=== PATIENT | male | born 1980 | race American Indian/Alaskan Native ===

== ENCOUNTER 2020-09-22 09:43 | Inpatient (IN) | payer BC ==
--- NOTE | 2020-09-22 11:19 | Emergency Department Report ---
ED General Adult HPI - General Chief complaint: Dyspnea/Respdistress Stated complaint: SOB PUI?: Yes Time Seen by Provider: 09/22/20 10:31 Source: patient Mode of arrival: Ambulatory Limitations: No Limitations - History of Present Illness Initial comments: This is a 40-year-old male with no prior medical history presents ED complaining of shortness of breath that worsened today. Patient states that he was tested positive for Covid Friday morning. Patient states that he is not having upper respiratory symptoms prior to that. Patient states that this morning he woke up and felt short of breath. Patient is also complaining of noticing blood with urination. Patient states he has had a couple of episodes today. Patient denies any fever, chills, nausea vomiting, abdominal pain, flank pain, diarrhea dysuria or bowel movements regularly Associated Symptoms: loss of appetite, shortness of breath - Related Data Allergies Allergy/AdvReac Type Severity Reaction Status Date / Time No Known Allergies Allergy Unverified 09/22/20 12:43 ED Review of Systems ROS: Stated complaint: SOB Other details as noted in HPI Comment: All other systems reviewed and negative ED Physical Exam - General Limitations: No Limitations General appearance: alert, in no apparent distress - Head Head exam: Present: atraumatic, normocephalic - Eye Eye exam: Present: normal appearance - ENT ENT exam: Present: mucous membranes moist - Neck Neck exam: Present: normal inspection, full ROM - Respiratory Respiratory exam: Present: normal lung sounds bilaterally, rales, accessory muscle use, decreased breath sounds. Absent: respiratory distress, chest wall tenderness - Cardiovascular Cardiovascular Exam: Present: regular rate, normal rhythm. Absent: systolic murmur, diastolic murmur, rubs, gallop - GI/Abdominal GI/Abdominal exam: Present: soft, normal bowel sounds - Rectal Rectal exam: Present: deferred - Extremities Exam Extremities exam: Present: normal inspection - Back Exam Back exam: Present: normal inspection - Neurological Exam Neurological exam: Present: alert, oriented X3 - Psychiatric Psychiatric exam: Present: normal affect, normal mood - Skin Skin exam: Present: warm, dry, intact, normal color. Absent: rash ED Course Vital Signs 09/22/20 12:59 Temperature 99.1 F Pulse Rate 90 Respiratory 18 Rate O2 Sat by Pulse 94 Oximetry - Reevaluation(s) Reevaluation #1: Upon reevaluating patient patient remains hypoxic at 90% on room air without exertion. CTA pending. 09/22/20 13:13 ED Medical Decision Making - Lab Data Result diagrams: 09/22/20 10:53 09/22/20 10:53 Laboratory Last Values WBC 5.1 K/mm3 (4.5-11.0) 09/22/20 10:53 RBC 5.44 M/mm3 (3.65-5.03) H 09/22/20 10:53 Hgb 15.1 gm/dl (11.8-15.2) 09/22/20 10:53 Hct 43.7 % (35.5-45.6) 09/22/20 10:53 MCV 80 fl (84-94) L 09/22/20 10:53 MCH 28 pg (28-32) 09/22/20 10:53 MCHC 35 % (32-34) H 09/22/20 10:53 RDW 14.8 % (13.2-15.2) 09/22/20 10:53 Plt Count 189 K/mm3 (140-440) 09/22/20 10:53 Lymph % (Auto) 7.4 % (13.4-35.0) L 09/22/20 10:53 [place] % (Auto) 5.7 % (0.0-7.3) 09/22/20 10:53 Eos % (Auto) 7.2 % (0.0-4.3) H 09/22/20 10:53 Baso % (Auto) 0.6 % (0.0-1.8) 09/22/20 10:53 Lymph # (Auto) 0.4 K/mm3 (1.2-5.4) L 09/22/20 10:53 [place] # (Auto) 0.3 K/mm3 (0.0-0.8) 09/22/20 10:53 Eos # (Auto) 0.4 K/mm3 (0.0-0.4) 09/22/20 10:53 Baso # (Auto) 0.0 K/mm3 (0.0-0.1) 09/22/20 10:53 Seg Neutrophils % 79.1 % (40.0-70.0) H 09/22/20 10:53 Seg Neutrophils # 4.0 K/mm3 (1.8-7.7) 09/22/20 10:53 D-Dimer 538.03 ng/mlDDU (0-234) H 09/22/20 10:53 Sodium 135 mmol/L (137-145) L 09/22/20 10:53 Potassium 4.2 mmol/L (3.6-5.0) 09/22/20 10:53 Chloride 96.4 mmol/L (98-107) L 09/22/20 10:53 Carbon Dioxide 27 mmol/L (22-30) 09/22/20 10:53 Anion Gap 16 mmol/L 09/22/20 10:53 BUN 13 mg/dL (9-20) 09/22/20 10:53 Creatinine 1.0 mg/dL (0.8-1.3) 09/22/20 10:53 Estimated GFR > 60 ml/min 09/22/20 10:53 BUN/Creatinine Ratio 13 % 09/22/20 10:53 Glucose 123 mg/dL (75-100) H 09/22/20 10:53 Glucose 124 mg/dL (75-100) H 09/22/20 10:53 Calcium 8.4 mg/dL (8.4-10.2) 09/22/20 10:53 Ferritin 1405.0 ng/mL (30.0-300.0) H 09/22/20 10:53 Lactate Dehydrogenase 432 units/L (91-180) H 09/22/20 10:53 C-Reactive Protein 4.10 mg/dL (0.00-1.30) H 09/22/20 10:53 - Radiology Data Radiology results: report reviewed, image reviewed CTA CHEST WITH CONTRAST INDICATION : Shortness of breath, elevated d-dimer. TECHNIQUE: Axial imaging performed through the chest, with contrast bolus timing set to maximize opacification of the pulmonary arteries. Sagittal and coronal reformatted images. 3-plane MIP reformatted images were obtained. All CT scans at this location are performed using CT dose reduction for ALARA by means of automated exposure control. 100 mL of intravenous contrast administered. COMPARISON: None FINDINGS: Bolus: Contrast bolus timing is adequate. PTE: No filling defect is present to suggest PTE. Mediastinum: Heart and great vessels appear normal. No pathologic mediastinal adenopathy. Lungs: There are scattered airspace opacities in the peripheral and lower lung zones bilaterally concerning for atypical pneumonia or viral infection. No consolidation, pleural effusion or pneumothorax. Bones: No significant abnormality. Upper abdomen: Limited imaging of the upper abdomen shows nothing acute. IMPRESSION: No evidence for pulmonary embolus. Bilateral lung opacities are identified concerning for atypical pneumonia or viral infection. Signer Name: Gregorio Leiva Jr, MD Signed: 09/22/2020 1:42 PM Workstation Name: [id number] Transcribed By: TTR Dictated By: GREGORIO LEIVA JR, MD Electronically Authenticated By: GREGORIO LEIVA JR, MD Signed Date/Time: 09/22/20 9312 - Medical Decision Making This 40-year-old male presents with Covid pneumonia with a decreased oxygen saturation persisting and dropping without exertion. Patient has been symptomatic for about a week not resolving symptoms. Patient will need supplemental oxygen if oxygen saturation keeps decreasing Discussed case with attending Dr. River who agrees with admission. Hospitalist Dr. Mohinder Carrillo consulted to admit patient. CTA results negative for DVT positive for bilateral pneumonia Patient to be admitted to the floor. Critical care attestation.: If time is entered above; I have spent that time in minutes in the direct care of this critically ill patient, excluding procedure time. ED Disposition Clinical Impression: Pneumonia due to COVID-19 virus Disposition: OP ADMIT IP TO THIS HOSP Is pt being admited?: Yes Does the pt Need Aspirin: No Condition: Stable
[2020-09-22 11:31] LABS: Basophils % (Auto) 0.6 % (0.0-1.8); Eosinophils # (Auto) 0.4 K/mm3 (0.0-0.4); Eosinophils % (Auto) 7.2 % (0.0-4.3); Hematocrit 43.7 % (35.5-45.6); Hemoglobin 15.1 gm/dl (11.8-15.2); Lymphocytes # (Auto) 0.4 K/mm3 (1.2-5.4); Lymphocytes % (Auto) 7.4 % (13.4-35.0); Mean Corpuscular HGB Conc 35 % (32-34); Mean Corpuscular Volume 80 fl (84-94); Monocytes # (Auto) 0.3 K/mm3 (0.0-0.8); Monocytes % (Auto) 5.7 % (0.0-7.3); Platelet Count 189 K/mm3 (140-440); Red Blood Count 5.44 M/mm3 (3.65-5.03); Red Cell Distribution Width 14.8 % (13.2-15.2)
[2020-09-22 11:35] LABS: BUN/Creatinine Ratio 13; Blood Urea Nitrogen 13 mg/dL (9-20); Calcium 8.4 mg/dL (8.4-10.2); Hemolysis Index 4
[2020-09-22 11:38] LABS: C-Reactive Protein 4.1 mg/dL (0.00-1.30)
--- NOTE | 2020-09-22 11:49 | XRay Report ---
CHEST 1 VIEW 09/22/2020 10:42 AM INDICATION / CLINICAL INFORMATION: sob. Covid positive COMPARISON: None available. FINDINGS: SUPPORT DEVICES: None. HEART / MEDIASTINUM: No significant abnormality. LUNGS / PLEURA: Patchy bilateral pulmonary opacities most predominant at the lung bases. No pleural e ffusion. No pneumothorax. ADDITIONAL FINDINGS: No significant additional findings. IMPRESSION: 1. Patchy bilateral pulmonary opacities consistent with provided history of viral versus atypical inf ectious process. Signer Name: Marcus Dumont MD Signed: 09/22/2020 11:45 AM Workstation Name: [id number]
[2020-09-22] MEDS ORDERED: SODIUM CHLORIDE 0.9% 1000 ML 1,000 ML IV ONE (12:12)
[2020-09-22] MEDS ORDERED: dexAMETHasone 20 MG/5 ML VIAL IV ONE (13:00)
[2020-09-22] MEDS ORDERED: cefTRIAXone/NS 1 GM/50 ML 1 GM/50 ML BAG IV ONE (13:00)
[2020-09-22] MEDS ORDERED: ONDANSETRON 4 MG/2 ML INJ IV PRN (13:03)
[2020-09-22] MEDS ORDERED: ACETAMINOPHEN 325 MG TAB PO PRN (13:03)
[2020-09-22] MEDS ORDERED: ALBUTEROL 2.5 MG/3 ML NEBU IH PRN (13:03)
--- NOTE | 2020-09-22 13:07 | History and Physical Report ---
History of Present Illness Chief complaint: My breathing has gotten worse History of present illness: 40 YO Male with Obesity presents to ED for evaluation. Patient reports "my breathing has gotten worse". Patient states that he has experienced shortness of breath over the past 1 week with persistently worsening symptoms over the same timeframe. Patient was found to have a positive coronavirus test 2 days ago. Patient acknowledges dyspnea on exertion, dyspnea at rest, decreased exercise tolerance, malaise, fatigue, body aches. Patient transported to [facility] via private vehicle for further care and evaluation of the aforementioned symptoms. The patient was seen and evaluated in the emergency department. All lab and imaging studies reviewed. The patient was found to have an ambulatory pulse oximetry of 87% with exertion which is consistent with acute hypoxemic respiratory failure. Patient underwent chest x-ray which revealed bilateral pneumonia. Patient admitted to medical floor and initiated on coronavirus protocol as well as pneumonia protocol. Patient denies fever, chills, chest pain, palpitation, productive cough, skin rash, recent ill contacts. No prior admission for review. No medication listed at time of admission for reconciliation. Past History Past Medical History: other (See HPI) Past Surgical History: No surgical history Social history: single. denies: smoking, alcohol abuse, prescription drug abuse Family history: hypertension Medications and Allergies Allergies Allergy/AdvReac Type Severity Reaction Status Date / Time No Known Allergies Allergy Unverified 09/22/20 12:43 Active Meds: Active Medications Acetaminophen (Acetaminophen 325 Mg Tab) 650 mg PO Q4H PRN PRN Reason: Pain MILD(1-3)/Fever >100.5/MAYA Albuterol (Albuterol 2.5 Mg/3 Ml Nebu) 2.5 mg IH Q4HRT PRN PRN Reason: Shortness Of Breath Heparin Sodium (Porcine) (Heparin 5,000 Unit/1 Ml Vial) 5,000 unit SUB-Q Q12HR WILLIE Sodium Chloride (Nacl 0.9% 1000 Ml) 1,000 mls @ 999 mls/hr IV BOLUS ONE Stop: 09/22/20 13:12 Ceftriaxone Sodium (Rocephin/Ns 1 Gm/50 Ml) 1 gm in 50 mls @ 100 mls/hr IV ONCE ONE; Protocol Stop: 09/22/20 13:29 Ceftriaxone Sodium (Rocephin/Ns 2 Gm/100 Ml) 2 gm in 100 mls @ 200 mls/hr IV Q24H WILLIE; Protocol Azithromycin (Zithromax/Ns) 500 mg in 250 mls @ 250 mls/hr IV Q24H WILLIE; Protocol Methylprednisolone Sodium Succinate (Methylprednisolone Sod Succinate 40 Mg/1 Ml Inj) 40 mg IV Q8HR [facility] Ondansetron HCl (Ondansetron 4 Mg/2 Ml Inj) 4 mg IV Q8H PRN PRN Reason: Nausea And Vomiting Sodium Chloride (Sodium Chloride 0.9% 10 Ml Flush Syringe) 10 ml IV BID WILLIE Sodium Chloride (Sodium Chloride 0.9% 10 Ml Flush Syringe) 10 ml IV PRN PRN PRN Reason: LINE FLUSH Review of Systems Constitutional: weakness, malaise, no weight loss, no weight gain, no fever, no chills Ears, nose, mouth and throat: no ear pain, no ear discharge, no nose pain, no sinus pressure Cardiovascular: decreased exercise tolerance, no chest pain, no orthopnea, no rapid/irregular heart beat, no edema Respiratory: cough, shortness of breath Gastrointestinal: no abdominal pain, no nausea, no vomiting, no diarrhea, no constipation, no change in bowel habits Genitourinary Male: no hematuria, no flank pain, no discharge, no urinary frequency, no urinary hesitancy Rectal: no pain, no incontinence, no bleeding Musculoskeletal: no neck stiffness, no neck pain, no shooting arm pain, no arm numbness/tingling, no low back pain Integumentary: no rash, no pruritis, no redness, no sores, no wounds, no jaundice Neurological: no transient paralysis, no paralysis, no weakness, no parathesias, no numbness, no tingling, no seizures, no lack of coordination Psychiatric: no anxiety, no sleep disturbances, no change in appetite Endocrine: no cold intolerance, no polyphagia, no nocturia Hematologic/Lymphatic: no easy bruising, no easy bleeding, no lymphadenopathy Allergic/Immunologic: no urticaria, no allergic rhinitis, no anaphylaxis Exam - Constitutional Vitals: Temp Pulse Resp BP Pulse Ox 99.1 F 90 18 94 09/22/20 12:59 09/22/20 12:59 09/22/20 12:59 09/22/20 12:59 General appearance: Present: mild distress - EENT Eyes: Present: PERRL ENT: hearing intact, clear oral mucosa - Neck Neck: Present: supple, normal ROM - Respiratory Respiratory effort: normal Respiratory: bilateral: CTA - Cardiovascular Heart Sounds: Present: S1 & S2. Absent: rub, click - Extremities Extremities: pulses symmetrical, No edema Peripheral Pulses: within normal limits - Abdominal General gastrointestinal: Present: soft, non-tender, non-distended, normal bowel sounds Male genitourinary: Present: normal - Integumentary Integumentary: Present: clear, warm, dry - Musculoskeletal Musculoskeletal: gait normal, strength equal bilaterally - Psychiatric Psychiatric: appropriate mood/affect, intact judgment & insight - Neurologic Neurologic: CNII-XII intact, moves all extremities Results - Labs CBC & Chem 7: 09/22/20 10:53 09/22/20 10:53 Labs: Abnormal lab results 09/22/20 09/22/20 09/22/20 Range/Units 10:53 10:53 10:53 RBC 5.44 H (3.65-5.03) M/mm3 MCV 80 L (84-94) fl MCHC 35 H (32-34) % Lymph % (Auto) 7.4 L (13.4-35.0) % Eos % (Auto) 7.2 H (0.0-4.3) % Lymph # (Auto) 0.4 L (1.2-5.4) K/mm3 Seg Neutrophils % 79.1 H (40.0-70.0) % D-Dimer 538.03 H (0-234) ng/mlDDU Sodium 135 L (137-145) mmol/L Chloride 96.4 L (98-107) mmol/L Glucose 123 H (75-100) mg/dL Ferritin (30.0-300.0) ng/mL Lactate Dehydrogenase (91-180) units/L C-Reactive Protein (0.00-1.30) mg/dL 09/22/20 09/22/20 Range/Units 10:53 10:53 RBC (3.65-5.03) M/mm3 MCV (84-94) fl MCHC (32-34) % Lymph % (Auto) (13.4-35.0) % Eos % (Auto) (0.0-4.3) % Lymph # (Auto) (1.2-5.4) K/mm3 Seg Neutrophils % (40.0-70.0) % D-Dimer (0-234) ng/mlDDU Sodium (137-145) mmol/L Chloride (98-107) mmol/L Glucose 124 H (75-100) mg/dL Ferritin 1405.0 H (30.0-300.0) ng/mL Lactate Dehydrogenase 432 H (91-180) units/L C-Reactive Protein 4.10 H (0.00-1.30) mg/dL Assessment and Plan - Patient Problems (1) Acute hypoxemic respiratory failure Current Visit: Yes Status: Acute Plan to address problem: Chest x-ray, supplemental oxygen, pulse oximetry, nebulizer therapy, prone pos itioning while in bed (2) Pneumonia Current Visit: Yes Status: Acute Plan to address problem: Pneumonia protocol: Chest x-ray, CBC, CMP, IV antibiotic therapy, supplemental oxygen, and pulse oximetry, nebulizer therapy, blood culture. (3) Suspected 2019 novel coronavirus infection Current Visit: Yes Status: Acute Plan to address problem: Coronavirus protocol: Contact precautions, isolation precautions, I have the antibiotic therapy, IV steroid therapy, vitamin C therapy, vitamin D therapy, zinc therapy, prophylactic anticoagulation. (4) Obesity (BMI 30.0-34.9) Current Visit: Yes Status: Acute Plan to address problem: Balanced diet, increase physical activity at discharge. (5) DVT prophylaxis Current Visit: Yes Status: Acute Plan to address problem: SCD to bilateral lower extremities while in bed, prophylactic anticoagulation.
--- NOTE | 2020-09-22 13:46 | Cat Scan Report ---
CTA CHEST WITH CONTRAST INDICATION : Shortness of breath, elevated d-dimer. TECHNIQUE: Axial imaging performed through the chest, with contrast bolus timing set to maximize opa cification of the pulmonary arteries. Sagittal and coronal reformatted images. 3-plane MIP reformatte d images were obtained. All CT scans at this location are performed using CT dose reduction for ALAR A by means of automated exposure control. 100 mL of intravenous contrast administered. COMPARISON: None FINDINGS: Bolus: Contrast bolus timing is adequate. PTE: No filling defect is present to suggest PTE. Mediastinum: Heart and great vessels appear normal. No pathologic mediastinal adenopathy. Lungs: There are scattered airspace opacities in the peripheral and lower lung zones bilaterally con cerning for atypical pneumonia or viral infection. No consolidation, pleural effusion or pneumothorax . Bones: No significant abnormality. Upper abdomen: Limited imaging of the upper abdomen shows nothing acute. IMPRESSION: No evidence for pulmonary embolus. Bilateral lung opacities are identified concerning for atypical pneumonia or viral infection. Signer Name: Gregorio Driver Jr, MD Signed: 09/22/2020 1:42 PM Workstation Name: [id number]
[2020-09-22] MEDS: cefTRIAXone/NS 2 GM/100 ML 2 GM/100 ML BAG IV SCH (14:46)
[2020-09-22] MEDS: methylPREDNISolone Sod Succinate 40 MG/1 ML INJ IV SCH ×2 (14:47→21:41)
[2020-09-22] MEDS ORDERED: AZITHROMYCIN/NS 500 MG/250 ML 500 MG/250 ML BAG IV SCH (15:00)
[2020-09-22] MEDS: AZITHROMYCIN/NS 500 MG/250 ML 500 MG/250 ML BAG IV SCH (16:26)
[2020-09-22] MEDS: HEPARIN 5,000 UNIT/1 ML VIAL SUB-Q SCH (21:40)
[2020-09-22] MEDS: ZINC SULFATE 220 MG CAP PO SCH (21:40)
[2020-09-22] MEDS: ASCORBIC ACID 500 MG TAB PO SCH (21:40)
[2020-09-23] MEDS: methylPREDNISolone Sod Succinate 40 MG/1 ML INJ IV SCH ×3 (05:59→21:54)
[2020-09-23 06:14] LABS: Hematocrit 43.5 % (35.5-45.6); Hemoglobin 14.4 gm/dl (11.8-15.2); Mean Corpuscular HGB Conc 33 % (32-34); Mean Corpuscular Volume 81 fl (84-94); Platelet Count 228 K/mm3 (140-440); Red Blood Count 5.35 M/mm3 (3.65-5.03); Red Cell Distribution Width 14.4 % (13.2-15.2)
[2020-09-23 06:30] LABS: BUN/Creatinine Ratio 13; Blood Urea Nitrogen 12 mg/dL (9-20); Calcium 8.5 mg/dL (8.4-10.2); Hemolysis Index 4
[2020-09-23 08:16] LABS: Bilirubin,Urine NEG (Negative); Blood,Urine NEG (Negative); Color,Urine Yellow (Yellow); Mucus,Urine FEW /HPF; Protein,Urine <15 mg/dL mg/dL (Negative); RBC,Urine < 1.0 /HPF (0.0-6.0); Urobilinogen,Urine < 2.0 mg/dL (<2.0)
[2020-09-23] MEDS: HEPARIN 5,000 UNIT/1 ML VIAL SUB-Q SCH ×2 (09:47→21:53)
[2020-09-23] MEDS: ASCORBIC ACID 500 MG TAB PO SCH ×2 (09:47→21:54)
[2020-09-23] MEDS: CHOLECALCIFEROL (VIT D3) 1000 UNIT (25 mcg) TAB PO SCH (09:47)
[2020-09-23] MEDS: ZINC SULFATE 220 MG CAP PO SCH ×2 (09:47→21:53)
[2020-09-23 11:21] LABS: Total Cells Counted 100
[2020-09-23 11:25] LABS: Platelet Estimate Consistent w Auto; RBC Morphology Normal
[2020-09-23] MEDS: cefTRIAXone/NS 2 GM/100 ML 2 GM/100 ML BAG IV SCH (14:45)
[2020-09-23] MEDS: AZITHROMYCIN/NS 500 MG/250 ML 500 MG/250 ML BAG IV SCH (16:23)
[2020-09-24] MEDS: methylPREDNISolone Sod Succinate 40 MG/1 ML INJ IV SCH (06:18)
[2020-09-24] MEDS: CHOLECALCIFEROL (VIT D3) 1000 UNIT (25 mcg) TAB PO SCH (09:03)
[2020-09-24] MEDS: ASCORBIC ACID 500 MG TAB PO SCH ×2 (09:03→21:45)
[2020-09-24] MEDS: ZINC SULFATE 220 MG CAP PO SCH ×2 (09:03→21:45)
[2020-09-24] MEDS: HEPARIN 5,000 UNIT/1 ML VIAL SUB-Q SCH ×2 (09:03→21:45)
--- NOTE | 2020-09-24 09:28 | Progress Note ---
Assessment and Plan Assessment and Plan - Patient Problems (1) Acute hypoxemic respiratory failure Current Visit: Yes Status: Acute Plan to address problem: Chest x-ray, supplemental oxygen, pulse oximetry, nebulizer therapy, prone positioning while in bed On 4 liters oxygen (2) Pneumonia Current Visit: Yes Status: Acute Plan to address problem: Pneumonia protocol: Chest x-ray, CBC, CMP, IV antibiotic therapy, supplemental oxygen, and pulse oximetry, nebulizer therapy, blood culture. Covid positive (3) Suspected 2019 novel coronavirus infection Current Visit: Yes Status: Acute Plan to address problem: Covid positive IV Decadron 8mg q24h ID consult for tomorrow (4) Obesity (BMI 30.0-34.9) Current Visit: Yes Status: Acute Plan to address problem: Balanced diet, increase physical activity at discharge. (5) DVT prophylaxis Current Visit: Yes Status: Acute Plan to address problem: SCD to bilateral lower extremities while in bed, prophylactic anticoagulation. Subjective Date of service: 09/23/20 Principal diagnosis: Shortness of breath for 3 days Interval history: 40 YO Male with Obesity presents to ED for evaluation. Patient reports "my breathing has gotten worse". Patient states that he has experienced shortness of breath over the past 1 week with persistently worsening symptoms over the same timeframe. Patient was found to have a positive coronavirus test 2 days ago. Patient acknowledges dyspnea on exertion, dyspnea at rest, decreased exercise tolerance, malaise, fatigue, body aches. Patient transported to [facility] via private vehicle for further care and evaluation of the aforementioned symptoms. The patient was seen and evaluated in the emergency department. All lab and imaging studies reviewed. The patient was found to have an ambulatory pulse oximetry of 87% with exertion which is consistent with acute hypoxemic re spiratory failure. Patient underwent chest x-ray which revealed bilateral pneumonia. Patient admitted to medical floor and initiated on coronavirus protocol as well as pneumonia protocol. Patient denies fever, chills, chest pain, palpitation, productive cough, skin rash, recent ill contacts. No prior admission for review. No medication listed at time of admission for reconciliation. Ran for such a long time very polite and he knows what he is doing 09/23/20 Covid test was positive Patient on 4 L nasal cannula oxygen Objective - Constitutional Vitals: Vital Signs - 12hr 09/23/20 09/23/2021 22:00 22:38 04:48 Temperature 98.3 F 97.4 F L Pulse Rate 78 80 Respiratory 18 18 Rate Blood Pressure 124/81 116/75 O2 Sat by Pulse 93 91 90 Oximetry 09/24/20 08:04 Temperature Pulse Rate Respiratory Rate Blood Pressure O2 Sat by Pulse 95 Oximetry General appearance: Present: no acute distress, well-nourished - EENT Eyes: PERRL, EOM intact ENT: hearing intact, clear oral mucosa Ears: bilateral: normal - Neck Neck: supple, normal ROM - Respiratory Respiratory effort: normal Respiratory: bilateral: CTA, rhonchi - Breasts Breasts: normal - Cardiovascular Heart rate: 78 Rhythm: regular Heart Sounds: Present: S1 & S2. Absent: gallop, rub Extremities: pulses intact, No edema, normal color, Full ROM - Gastrointestinal General gastrointestinal: Present: soft, non-tender, non-distended, normal bowel sounds - Genitourinary Male genitourinary: normal - Integumentary Integumentary: clear, warm, dry - Musculoskeletal Musculoskeletal: 1, strength equal bilaterally - Neurologic Neurologic: moves all extremities - Psychiatric Psychiatric: memory intact, appropriate mood/affect, intact judgment & insight - Labs CBC & Chem 7: 09/23/20 05:08 09/23/20 05:08 Labs: Abnormal lab results 09/23/20 09/23/20 Range/Units 05:08 Unknown Seg Neuts % (Manual) 80.0 H (40.0-70.0) % Lymphocytes # (Manual) 0.7 L (1.2-5.4) K/mm3 Coronavirus (PCR) Positive A (Negative)
--- NOTE | 2020-09-24 10:04 | Progress Note ---
Assessment and Plan Assessment and Plan - Patient Problems (1) Acute hypoxemic respiratory failure Current Visit: Yes Status: Acute Plan to address problem: Chest x-ray, supplemental oxygen, pulse oximetry, nebulizer therapy, prone positioning while in bed On 1 L nasal cannula oxygen today We will try a on room air and if the patient is doing well will discharge tomorrow (2) Pneumonia Current Visit: Yes Status: Acute Plan to address problem: Pneumonia protocol: Chest x-ray, CBC, CMP, IV antibiotic therapy, supplemental oxygen, and pulse oximetry, nebulizer therapy, blood culture. Covid positive On 1 L nasal cannula oxygen (3) Suspected 2019 novel coronavirus infection Current Visit: Yes Status: Acute Plan to address problem: Covid positive IV Decadron 8mg q24h ID consult for tomorrow (4) Obesity (BMI 30.0-34.9) Current Visit: Yes Status: Acute Plan to address problem: Balanced diet, increase physical activity at discharge. (5) DVT prophylaxis Current Visit: Yes Status: Acute Plan to address problem: SCD to bilateral lower extremities while in bed, prophylactic anticoagulation. Preventive measures Patient counseled about self isolation for 2 weeks after discharge We will talk with the patient tomorrow again regarding discharge plans Subjective Date of service: 09/24/20 Principal diagnosis: Shortness of breath for 3 days Interval history: 40 YO Male with Obesity presents to ED for evaluation. Patient reports "my breathing has gotten worse". Patient states that he has experienced shortness of breath over the past 1 week with persistently worsening symptoms over the same timeframe. Patient was found to have a positive coronavirus test 2 days ago. Patient acknowledges dyspnea on exertion, dyspnea at rest, decreased exercise tolerance, malaise, fatigue, body aches. Patient transported to [facility] via private vehicle for further care and evaluation of the aforementioned symptoms. The patient was seen and evaluated in the emergency department. All lab and imaging studies reviewed. The patient was found to have an ambulatory pulse oximetry of 87% with exertion which is consistent with acute hypoxemic respiratory failure. Patient underwent chest x-ray which revealed bilateral pneumonia. Patient admitted to medical floor and initiated on coronavirus protocol as well as pneumonia protocol. Patient denies fever, chills, chest pain, palpitation, productive cough, skin rash, recent ill contacts. No prior admission for review. No medication listed at time of admission for reconciliation. Ran for such a long time very polite and he knows what he is doing 09/23/20 Covid test was positive Patient on 4 L nasal cannula oxygen 09/24/2020 Patient is comfortable Patient on 1 L nasal cannula oxygen ID consult requested for today Defer to ID regarding remdesivir Objective - Constitutional Vitals: Vital Signs - 12hr 09/23/20 09/23/20 09/24/20 22:00 22:38 04:48 Temperature 98.3 F 97.4 F L Pulse Rate 78 80 Respiratory 18 18 Rate Blood Pressure 124/81 116/75 O2 Sat by Pulse 93 91 90 Oximetry 09/24/20 08:04 Temperature Pulse Rate Respiratory Rate Blood Pressure O2 Sat by Pulse 95 Oximetry General appearance: Present: no acute distress, well-nourished - EENT Eyes: PERRL, EOM intact ENT: hearing intact, clear oral mucosa Ears: bilateral: normal - Neck Neck: supple, normal ROM - Respiratory Respiratory effort: normal Respiratory: bilateral: CTA - Breasts Breasts: normal - Cardiovascular Heart rate: 82 Rhythm: regular Heart Sounds: Present: S1 & S2. Absent: gallop, rub Extremities: pulses intact, No edema, normal color, Full ROM - Gastrointestinal General gastrointestinal: Present: soft, non-tender, non-distended, normal bowel sounds - Genitourinary Male genitourinary: normal - Integumentary Integumentary: clear, warm, dry - Musculoskeletal Musculoskeletal: 1, strength equal bilaterally - Neurologic Neurologic: moves all extremities - Psychiatric Psychiatric: memory intact, appropriate mood/affect, intact judgment & insight - Labs CBC & Chem 7: 09/23/20 05:08 09/23/20 05:08 Labs: Abnormal lab results 09/23/20 09/23/20 Range/Units 05:08 Unknown Seg Neuts % (Manual) 80.0 H (40.0-70.0) % Lymphocytes # (Manual) 0.7 L (1.2-5.4) K/mm3 Coronavirus (PCR) Positive A (Negative)
[2020-09-24] MEDS: dexAMETHasone 4 MG/ML VIAL IV SCH (10:29)
[2020-09-24] MEDS ORDERED: AZITHROMYCIN 250 MG TAB PO SCH (11:00)
--- NOTE | 2020-09-24 11:03 | Consultation ---
History of Present Illness - Reason for Consult Consult date: 09/24/20 COVID-19 pneumonia Requesting physician: KASEY COLEMAN - History of Present Illness The patient is a 40-year-old male with no significant past medical history was admitted to the hospital after he presented on 09/22/2020 with worsening shortness of breath. He had tested positive for COVID-19 as an outpatient. Upon evaluation in the ER, noted to be hypoxic requiring supplemental oxygen. Infectious diseases was consulted for additional evaluation. He is currently afebrile. Requiring nasal cannula by 2 L. Otherwise feeling well. Labs revealed mild leukopenia, D-dimer 538, ferritin 05/01/2004, procalcitonin 0.05, CRP 4.1, LDH 432. Review of Systems: General: no fevers,chills or rigors HEENT: no new visual disturbance Respiratory: Cough, shortness of breath cardiovascular: No chest pain, syncope Gastrointestinal: No nausea, vomiting or diarrhea Genitourinary: No dysuria or hematuria Musculoskeletal: No new or worsening neck pain or back pain Neurologic: No headaches, seizures Hematologic: No easy bruising or bleeding Endocrine: No night sweats or acute weight loss Skin: negative for rash, jaundice Psychiatric: No suicidal or homicidal ideation Past History Past Medical History: other (See HPI) Past Surgical History: No surgical history Social history: single. denies: smoking, alcohol abuse, prescription drug abuse Family history: hypertension Medications and Allergies Allergies Allergy/AdvReac Type Severity Reaction Status Date / Time No Known Allergies Allergy Unverified 09/22/20 12:43 Home Medications Medication Instructions Recorded Confirmed Last Taken Type No Known Home Medications [No 09/23/20 09/23/20 Unknown History Reported Home Medications] Active Meds: Active Medications Acetaminophen (Acetaminophen 325 Mg Tab) 650 mg PO Q4H PRN PRN Reason: Pain MILD(1-3)/Fever >100.5/MAYA Albuterol (Albuterol 2.5 Mg/3 Ml Nebu) 2.5 mg IH Q4HRT PRN PRN Reason: Shortness Of Breath Ascorbic Acid (Ascorbic Acid 500 Mg Tab) 500 mg PO BID [facility] Last Admin: 09/24/20 09:03 Dose: 500 mg Documented by: Azithromycin (Azithromycin 250 Mg Tab) 500 mg PO QDAY [facility]; Protocol Stop: 09/26/20 10:01 Cholecalciferol (Cholecalciferol (Vit D3) 1000 Unit (25 Mcg) Tab) 1,000 unit PO QDAY [facility] Last Admin: 09/24/20 09:03 Dose: 1,000 unit Documented by: Dexamethasone (Dexamethasone 4 Mg/Ml Vial) 8 mg IV Q24H [facility] Last Admin: 09/24/20 10:29 Dose: 8 mg Documented by: Heparin Sodium (Porcine) (Heparin 5,000 Unit/1 Ml Vial) 5,000 unit SUB-Q Q12HR [facility] Last Admin: 09/24/20 09:03 Dose: 5,000 unit Documented by: Ceftriaxone Sodium (Rocephin/Ns 2 Gm/100 Ml) 2 gm in 100 mls @ 200 mls/hr IV Q24H [facility]; Protocol Stop: 09/26/20 14:29 Last Admin: 09/23/20 14:45 Dose: 200 mls/hr Documented by: Ondansetron HCl (Ondansetron 4 Mg/2 Ml Inj) 4 mg IV Q8H PRN PRN Reason: Nausea And Vomiting Sodium Chloride (Sodium Chloride 0.9% 10 Ml Flush Syringe) 10 ml IV BID [facility] Last Admin: 09/24/20 09:04 Dose: 10 ml Documented by: Sodium Chloride (Sodium Chloride 0.9% 10 Ml Flush Syringe) 10 ml IV PRN PRN PRN Reason: LINE FLUSH Zinc Sulfate (Zinc Sulfate 220 Mg Cap) 220 mg PO BID [facility] Last Admin: 09/24/20 09:03 Dose: 220 mg Documented by: Physical Examination - Physical Exam Narrative exam: Physical Exam: Constitutional: Alert, cooperative. No acute distress Head, Ears, Nose: Normocephalic, atraumatic. External ears, nose normal Eyes: Conjunctivae/corneas clear. No icterus. No ptosis. Neck: Supple, no meningeal signs Oral: deferred Cardiovascular: S1, S2 normal. Respiratory: Good air entry, clear to auscultation bilaterally GI: Soft, non-tender; bowel sounds normal. No peritoneal signs Musculoskeletal: No pedal edema, no cyanosis. Skin: No rash or abscess Hem/Lymphatic: No palpable cervical or supraclavicular nodes. No lymphangitis Psych: Mood ok. Affect normal Neurological: Awake, alert, oriented. No gross abnormality - Constitutional Vitals: Vital Signs Temp Pulse Resp BP Pulse Ox 97.4 F L 80 18 116/75 95 09/24/20 04:48 09/24/20 04:48 09/24/20 04:48 09/24/20 04:48 09/24/20 08:04 Temperature -Last 24 Hours Temperature 97.4 F Temperature 98.3 F Temperature 97.6 F Temperature 98.9 F Results - Labs CBC & Chem 7: 09/23/20 05:08 09/23/20 05:08 Labs: Abnormal lab results 09/23/20 09/23/20 Range/Units 05:08 Unknown Seg Neuts % (Manual) 80.0 H (40.0-70.0) % Lymphocytes # (Manual) 0.7 L (1.2-5.4) K/mm3 Coronavirus (PCR) Positive A (Negative) - Imaging and Cardiology Chest x-ray: report reviewed, image reviewed (Bilateral patchy infiltrates) Assessment and Plan Cultures: SARS CoV2 PCR: Positive A/P: 40-year-old male: #Bilateral pneumonia: Secondary to COVID-19. Labs revealed mild leukopenia, D- dimer 538, ferritin 05/01/2004, procalcitonin 0.05, CRP 4.1, LDH 432. CTA negative for PE, showed bilateral groundglass opacities. #Acute hypoxic respiratory failure: On nasal cannula #Leukopenia: Likely secondary to COVID-19. Recs: -Due to need for supplemental oxygen, started on remdesivir -IV/PO Dexamethasone x 10 days -procal is low, abx not needed -prophylactic anticoagulation based on d-dimer per hospital protocol -trend ferritin, LDH, d-dimer, CRP every 2-3 days for risk stratification and to assess disease progression -daily ambulatory sats, if weaned off oxygen, can start discharge planning d/w Dr. Quin Baker MD, FACP [facility] ([facility] O: [phone] F: [phone]
[2020-09-24] MEDS: SODIUM CHLORIDE 0.9% 50 ML IVPB IV SCH (14:00)
[2020-09-24] MEDS ORDERED: REMDESIVIR 200 MG in SODIUM CHLORIDE 0.9% 250ML 250 ML IV ONE (14:00)
[2020-09-24 14:07] LABS: Albumin 3.6 g/dL (3.9-5); Bilirubin,Direct 0.2 mg/dL (0-0.2)
[2020-09-25] MEDS: SODIUM CHLORIDE 0.9% 50 ML IVPB IV SCH (04:45)
[2020-09-25 06:08] LABS: Basophils % (Auto) 0.1 % (0.0-1.8); Hematocrit 40.2 % (35.5-45.6); Hemoglobin 13.8 gm/dl (11.8-15.2); Lymphocytes # (Auto) 0.9 K/mm3 (1.2-5.4); Lymphocytes % (Auto) 6.8 % (13.4-35.0); Mean Corpuscular HGB Conc 35 % (32-34); Mean Corpuscular Volume 81 fl (84-94); Monocytes # (Auto) 1.5 K/mm3 (0.0-0.8); Monocytes % (Auto) 10.8 % (0.0-7.3); Platelet Count 309 K/mm3 (140-440); Red Blood Count 4.96 M/mm3 (3.65-5.03); Red Cell Distribution Width 14.9 % (13.2-15.2)
[2020-09-25 06:26] LABS: Alanine Aminotransferase 91 units/L (7-56); Albumin 3.6 g/dL (3.9-5); BUN/Creatinine Ratio 20; Blood Urea Nitrogen 16 mg/dL (9-20); Calcium 8.1 mg/dL (8.4-10.2); Hemolysis Index 5
[2020-09-25] MEDS: CHOLECALCIFEROL (VIT D3) 1000 UNIT (25 mcg) TAB PO SCH (09:27)
[2020-09-25] MEDS: HEPARIN 5,000 UNIT/1 ML VIAL SUB-Q SCH (09:27)
[2020-09-25] MEDS: ZINC SULFATE 220 MG CAP PO SCH (09:27)
[2020-09-25] MEDS: ASCORBIC ACID 500 MG TAB PO SCH (09:27)
[2020-09-25] MEDS: dexAMETHasone 4 MG/ML VIAL IV SCH (09:29)
--- NOTE | 2020-09-25 11:46 | Progress Note ---
Assessment and Plan Cultures: SARS CoV2 PCR: Positive A/P: 40-year-old male: #Bilateral pneumonia: Secondary to COVID-19. Labs revealed mild leukopenia, D- dimer 538, ferritin 05/01/2004, procalcitonin 0.05, CRP 4.1, LDH 432. CTA negative for PE, showed bilateral groundglass opacities. #Acute hypoxic respiratory failure: On nasal cannula #Leukopenia: Likely secondary to COVID-19. Recs: -continue remdesivir, D2 -IV/PO Dexamethasone x 10 days -get ambulatory sats, if weaned off oxygen, OK to discharge, complete remainder of PO decadron d/w Dr. Quin Baker MD, FACP [facility] ([facility] O: [phone] F: [phone] Subjective Date of service: 09/25/20 Principal diagnosis: Shortness of breath for 3 days Interval history: No fever. Remains on oxygen by 2 lit/min NC. Objective - Exam Narrative Exam: Physical Exam: (deferred to minimize transmission risk) Reviewed in the chart. - Constitutional Vitals: Vital Signs Temp Pulse Resp BP Pulse Ox 98.4 F 82 18 134/84 96 09/25/20 04:35 09/25/20 04:35 09/25/20 04:35 09/25/20 04:35 09/25/20 04:35 Temperature -Last 24 Hours Temperature 98.4 F Temperature 98.1 F Temperature 98.6 F - Labs CBC & Chem 7: 09/25/20 05:22 09/25/20 05:22 Labs: Abnormal lab results 09/24/20 09/25/20 09/25/20 Range/Units 13:36 05:22 05:22 WBC 13.7 H (4.5-11.0) K/mm3 MCV 81 L (84-94) fl MCHC 35 H (32-34) % Lymph % (Auto) 6.8 L (13.4-35.0) % [place] % (Auto) 10.8 H (0.0-7.3) % Lymph # (Auto) 0.9 L (1.2-5.4) K/mm3 [place] # (Auto) 1.5 H (0.0-0.8) K/mm3 Seg Neutrophils % 82.3 H (40.0-70.0) % Seg Neutrophils # 11.3 H (1.8-7.7) K/mm3 Glucose 102 H (75-100) mg/dL Calcium 8.1 L (8.4-10.2) mg/dL AST 41 H 49 H (5-40) units/L ALT 69 H 91 H (7-56) units/L Albumin 3.6 L 3.6 L (3.9-5) g/dL
--- NOTE | 2020-09-25 14:21 | Discharge Summary ---
Providers - Providers Date of Admission: 09/22/20 13:03 Date of discharge: 09/25/20 Attending physician: KASEY COLEMAN 09/24/20 09:52 Consult to Physician [CONS] Routine Comment: Consulting Provider: KERRI AVILA Physician Instructions: Reason For Exam: Covid pneumonia Primary care physician: TELEVISION PROGRAM DIRECTOR Hospitalization Condition: Stable Hospital course: Subjective Date of service: 09/25/20 Principal diagnosis: Shortness of breath for 3 days Interval history: 40 YO Male with Obesity presents to ED for evaluation. Patient reports "my breathing has gotten worse". Patient states that he has experienced shortness of breath over the past 1 week with persistently worsening symptoms over the same timeframe. Patient was found to have a positive coronavirus test 2 days ago. Patient acknowledges dyspnea on exertion, dyspnea at rest, decreased exe rcise tolerance, malaise, fatigue, body aches. Patient transported to [facility] via private vehicle for further care and evaluation of the aforementioned symptoms. The patient was seen and evaluated in the emergency department. All lab and imaging studies reviewed. The patient was found to have an ambulatory pulse oximetry of 87% with exertion which is consistent with acute hypoxemic respiratory failure. Patient underwent chest x-ray which revealed bilateral pneumonia. Patient admitted to medical floor and initiated on coronavirus protocol as well as pneumonia protocol. Patient denies fever, chills, chest pain, palpitation, productive cough, skin rash, recent ill contacts. No prior admission for review. No medication listed at time of admission for reconciliation. 09/23/20 Covid test was positive Patient on 4 L nasal cannula oxygen 09/24/2020 Patient is comfortable Patient on 1 L nasal cannula oxygen ID consult requested for today Defer to ID regarding remdesivir 09/25/2020 On room air patient oxygen saturations 95% On walking patient oxygen saturation 94% Counseled the patient about self-isolation for total of 14 days Return to work on 10/09 or after Assessment and Plan - Patient Problems (1) Acute hypoxemic respiratory failure Current Visit: Yes Status: Acute Plan to address problem: Improved (2) Pneumonia Current Visit: Yes Status: Acute Plan to address problem: On room air Continued oral Decadron for 7 more days (3) Suspected 2019 novel coronavirus infection Current Visit: Yes Status: Acute Plan to address problem: Covid positive Continue oral Decadron 8 mg for the next 7 days and self isolate Patient counseled about self-isolation and return to work on 10/09/2020 (4) Obesity (BMI 30.0-34.9) Current Visit: Yes Status: Acute Plan to address problem: Balanced diet, increase physical activity at discharge. (5) DVT prophylaxis Current Visit: Yes Status: Acute Plan to address problem: SCD to bilateral lower extremities while in bed, prophylactic anticoagulation. Preventive measures Patient counseled about self isolation for 2 weeks after discharge We will talk with the patient tomorrow again regarding discharge plans Disposition: DC-01 TO HOME OR SELFCARE Final Discharge Diagnosis (Prints w/discharge instructions): Acute respiratory failure with hypoxia. Pneumonia. Covid positive pneumonia. Obesity Time spent for discharge: 35 minutes - Discharge Diagnoses (1) Acute hypoxemic respiratory failure Status: Acute (2) Pneumonia Status: Acute (3) Pneumonia due to COVID-19 virus Status: Acute (4) Obesity (BMI 30.0-34.9) Status: Acute (5) DVT prophylaxis Status: Acute Core Measure Documentation - Palliative Care Palliative Care/ Comfort Measures: Not Applicable - Core Measures Any of the following diagnoses?: none Exam - Constitutional Vitals: Temp Pulse Resp BP Pulse Ox 98.4 F 82 18 134/84 96 09/25/20 04:35 09/25/20 04:35 09/25/20 04:35 09/25/20 04:35 09/25/20 04:35 General appearance: Present: no acute distress, well-nourished - EENT Eyes: Present: PERRL ENT: hearing intact, clear oral mucosa - Neck Neck: Present: supple, normal ROM - Respiratory Respiratory effort: normal Respiratory: bilateral: CTA - Cardiovascular Heart rate: 78 Rhythm: regular Heart Sounds: Present: S1 & S2. Absent: rub, click - Extremities Extremities: pulses symmetrical, No edema Peripheral Pulses: within normal limits - Abdominal General gastrointestinal: Present: soft, non-tender, non-distended, normal bowel sounds Male genitourinary: Present: normal - Integumentary Integumentary: Present: clear, warm, dry - Musculoskeletal Musculoskeletal: gait normal, strength equal bilaterally - Psychiatric Psychiatric: appropriate mood/affect, intact judgment & insight - Neurologic Neurologic: CNII-XII intact, moves all extremities Plan Activity: no restrictions Diet: regular Follow up with: KASEY COLEMAN MD [Staff Physician] - 7 Days Forms: Work/School Excuse Out Patient, Work/School Release Form Prescriptions: dexAMETHasone [Decadron] 8 mg PO ONCE 7 Days #7 tablet Ascorbic Acid [Vitamin C] 1,000 mg PO BID #20 tablet Zinc Sulfate [Zinc] 220 mg PO BID #20 tablet
[2020-09-25 15:35] VITALS: BP 116/70
[2020-09-25] MEDS ORDERED: REMDESIVIR 100 MG in SODIUM CHLORIDE 0.9% 250ML 250 ML IV SCH (21:00)
== END 2020-09-25 16:30 | disposition home or self-care (01) | DRG 177 ==
LOC: ED 09:43 → 3A 13:03
PROVIDERS: ADMIT Internal Medicine; ATTEND Internal Medicine
PROC: XW033E5 Introduction of Remdesivir Anti-infective into Peripheral Vein, Percutaneous Approach, New Technology Group 5 (ICD-10-PCS; principal; 2020-09-24)
DX: U07.1 COVID-19 (principal); J12.82 Pneumonia due to coronavirus disease 2019; J96.01 Acute respiratory failure with hypoxia; D72.819 Decreased white blood cell count, unspecified; E66.9 Obesity, unspecified; Z68.30 Body mass index [BMI] 30.0-30.9, adult; Z82.49 Family history of ischemic heart disease and other diseases of the circulatory system
CPT/HCPCS: 36415; 71045; 71275; 80048; 80053; 80076; 81001; 82728; 82947; 83615; 84145; 85007; 85025; 85379; 86140; 96365; 96366; 96375; G0378; J0456; J0696; J1100; J1644; J2920; J7030; J7050; Q9967; U0003